=== PATIENT | female | born 1955 | race Caucasian/White ===

== ENCOUNTER 2019-01-07 16:53 | Inpatient (IN) ==
[2019-01-07] MEDS ORDERED: Acetaminophen 325 MG Tablet PO ONE (17:58)
[2019-01-07] MEDS ORDERED: Azithromycin Inj 500 MG in Sodium Chlor 0.9% Inj 250 ML IV.SIG ONE (17:58)
[2019-01-07] MEDS ORDERED: MethylPREDNISolone Sod Succinate Inj 125 MG/2 ML Vial IV.PUSH ONE (17:59)
--- NOTE | 2019-01-07 18:07 | ED ---
HPI General Chief complaint: Respiratory Symptoms Stated complaint: Pneumonia Symptoms Time Seen by Provider: 01/07/19 17:52 Source: patient Mode of arrival: ambulatory Limitations: no limitations History of Present Illness HPI narrative: 63-year-old female with history of COPD, not on home oxygen, hypertension, from [place], has been down here since October 2018, has no local primary care physicians, was diagnosed with bronchial pneumonia at an urgent care clinic on 01/01/19 and was prescribed Levaquin, prednisone, and Tessalon Perles, here because the patient's symptoms have not improved and appear to be worsening. The patient has a cough productive of greenish sputum. She denies hemoptysis. She is dyspneic at rest, worse with exertion and laying flat. Patient states she feels like she is drowning. She denies history of CHF or cardiac disease. She does continue to smoke cigarettes, however has had very few cigarettes in the last couple of weeks because she has been feeling ill. Levaquin and prednisone prescriptions were finished 2 days ago. She is having diffuse chest tightness which is constant and moderate. No history of DVT or PE. She has had subjective fevers and chills stating that she felt extremely hot yesterday evening. Related Data Home Medications Medication Instructions Recorded Confirmed losartan 100 mg PO DAILY 01/07/19 01/07/19 Allergies Allergy/AdvReac Type Severity Reaction Status Date / Time aspirin Allergy Bleeding Verified 01/07/19 17:08 Review of Systems ROS: all other systems reviewed are negative PMFSH Medical History Medical History Broken jaw (Acute) COPD (chronic obstructive pulmonary disease) (Acute) FH: cholecystectomy (Acute) H/O: hysterectomy (Acute) Hypertension (Acute) Uterine cancer (Acute) Surgical History Surgical History H/O foot surgery (Acute) History of facial surgery (Acute) Social History Social History Substance History: No History of Abuse Second Hand Smoke Exposure: Yes Smoking Status: Current every day smoker Tobacco Type: Cigarettes How Often Do You Have a Drink Containing Alcohol: Never Recent Travel in [facility] within the Last 8 Weeks: No Recent Out of Country Travel within the Last 8 Weeks: No Immunization History Tetanus Immunization: <5 Years Exam Narrative Exam Narrative: GENERAL: Well-developed, well-nourished, appears ill, intermittent deep sounding cough, speaking full sentences SKIN: Focused skin assessment warm/dry. No rash. HEAD: Atraumatic. Normocephalic. EYES: Pupils equal and round. No scleral icterus. No injection or drainage. ENT: Mucous membranes pink and dry. NECK: Trachea midline. No JVD. CARDIOVASCULAR: Tachycardic, rate 100, regular. RESPIRATORY: No accessory muscle use. Coarse breath sounds bilaterally with slight inspiratory and expiratory wheezes bilaterally. Intermittent deep sounding cough. Breath sounds equal bilaterally. GASTROINTESTINAL: Abdomen soft, non-tender, nondistended. MUSCULOSKELETAL: No obvious deformities. No clubbing. No cyanosis. No edema. NEUROLOGICAL: Awake and alert. No obvious cranial nerve deficits. Motor grossly within normal limits. Normal speech. PSYCHIATRIC: Appropriate mood and affect; insight and judgment normal. Course Initial Documented Vital Signs Temperature 98.2 F 01/07/19 17:00 Pulse Rate 95 H 01/07/19 17:00 Respiratory Rate 17 01/07/19 17:00 Blood Pressure 159/79 H 01/07/19 17:00 Pulse Oximetry 96 01/07/19 17:00 Last Documented Vital Signs Temperature 98.2 F 01/07/19 17:00 Pulse Rate 95 H 01/07/19 18:21 Respiratory Rate 15 01/07/19 18:21 Blood Pressure 159/79 H 01/07/19 17:00 Pulse Oximetry 96 01/07/19 17:00 Medical Decision Making MDM Narrative Medical decision making narrative: The patient was initially evaluated in triage by me as part of the RMA process. Initial labs and imaging studies were ordered by me, and the patient will be brought back to a treatment room where the results will be followed up by the PA. Patient was evaluated/reassessed by myself via the RMA process Patient received 3 DuoNeb treatments along with Solu-Medrol IV dose Reevaluation patient is still wheezing throughout all sections of the lung. Mostly expiratory wheezes Lab work is unremarkable. Lactic is negative Chest x-ray does not show a pneumonia Patient will receive another dose of albuterol nebulizer treatment Patient will be admitted for COPD exacerbation/bronchitis Medical Screen Exam Complete: Yes Emergency Medical Condition: Yes Differential Diagnosis Differential Diagnosis: Sepsis, pneumonia, bronchitis, failed outpatient treatment, pulmonary edema, PE, pleural effusion, COPD exacerbation Lab Data Result diagrams: 01/07/19 18:10 01/07/19 18:10 Lab Results 02/23/19 02/23/19 02/23/19 Range/Units 18:10 18:10 18:10 WBC 10.8 (4.0-11.0) th/mm3 RBC 5.11 (4.00-5.30) mil/mm3 Hgb 15.2 (11.6-15.3) gm/dL Hct 44.7 (35.0-46.0) % MCV 87.5 (80.0-100.0) fL MCH 29.8 (27.0-34.0) pg MCHC 34.1 (32.0-36.0) % RDW 14.2 (11.6-17.2) % Plt Count 337 (150-450) th/mm3 MPV 7.6 (7.0-11.0) fL Neut % (Auto) 65.7 (16.0-70.0) % Lymph % (Auto) 25.6 (9.0-44.0) % [place] % (Auto) 7.7 (0.0-8.0) % Eos % (Auto) 0.3 (0.0-4.0) % Baso % (Auto) 0.7 (0.0-2.0) % Neut # (Auto) 7.1 (1.8-7.7) th/mm3 Lymph # (Auto) 2.8 (1.0-4.8) th/mm3 [place] # (Auto) 0.8 (0.0-0.9) th/mm3 Eos # (Auto) 0.0 (0.0-0.4) th/mm3 Baso # (Auto) 0.1 (0.0-0.2) th/mm3 WBC Differential . Differential Comment Auto diff final PT 9.8 (9.8-11.6) sec INR 1.0 Ratio Sodium 140 (136-145) meq/L Potassium 4.2 (3.5-5.1) meq/L Chloride 107 (98-107) meq/L Carbon Dioxide 24.7 (21.0-32.0) meq/L Anion Gap 8 (5-15) meq/L BUN 22 H (7-18) mg/dL Creatinine 0.81 (0.50-1.00) mg/dL Estimated GFR 72 L (>89) mL/min Random Glucose 101 (74-106) mg/dL Lactic Acid (0.4-2.0) mmol/L Calcium 8.8 (8.5-10.1) mg/dL Magnesium 2.2 (1.5-2.5) mg/dL Total Bilirubin 0.7 (0.2-1.0) mg/dL AST 17 (15-37) U/L ALT 23 (10-53) U/L Alkaline Phosphatase 97 (45-117) U/L Total Creatine Kinase 54 (26-192) U/L Troponin I Less than 0.02 L (0.02-0.05) ng/mL B-Natriuretic Peptide (0-100) pg/mL Total Protein 7.3 (6.4-8.2) g/dL Albumin 3.6 (3.4-5.0) g/dL 01/07/19 01/07/19 Range/Units 18:10 18:10 WBC (4.0-11.0) th/mm3 RBC (4.00-5.30) mil/mm3 Hgb (11.6-15.3) gm/dL Hct (35.0-46.0) % MCV (80.0-100.0) fL MCH (27.0-34.0) pg MCHC (32.0-36.0) % RDW (11.6-17.2) % Plt Count (150-450) th/mm3 MPV (7.0-11.0) fL Neut % (Auto) (16.0-70.0) % Lymph % (Auto) (9.0-44.0) % [place] % (Auto) (0.0-8.0) % Eos % (Auto) (0.0-4.0) % Baso % (Auto) (0.0-2.0) % Neut # (Auto) (1.8-7.7) th/mm3 Lymph # (Auto) (1.0-4.8) th/mm3 [place] # (Auto) (0.0-0.9) th/mm3 Eos # (Auto) (0.0-0.4) th/mm3 Baso # (Auto) (0.0-0.2) th/mm3 WBC Differential Differential Comment PT (9.8-11.6) sec INR Ratio Sodium (136-145) meq/L Potassium (3.5-5.1) meq/L Chloride (98-107) meq/L Carbon Dioxide (21.0-32.0) meq/L Anion Gap (5-15) meq/L BUN (7-18) mg/dL Creatinine (0.50-1.00) mg/dL Estimated GFR (>89) mL/min Random Glucose (74-106) mg/dL Lactic Acid 1.0 (0.4-2.0) mmol/L Calcium (8.5-10.1) mg/dL Magnesium (1.5-2.5) mg/dL Total Bilirubin (0.2-1.0) mg/dL AST (15-37) U/L ALT (10-53) U/L Alkaline Phosphatase (45-117) U/L Total Creatine Kinase (26-192) U/L Troponin I (0.02-0.05) ng/mL B-Natriuretic Peptide 21 (0-100) pg/mL Total Protein (6.4-8.2) g/dL Albumin (3.4-5.0) g/dL Imaging Data Radiologist's impression: Chest X-Ray 01/07/19 17:58 CONCLUSION: The lungs are clear. ECG Data Attestation: I personally reviewed and interpreted this ECG as follows: (Sinus tachycardia, rate 103, normal axis, normal intervals, nonspecific T wave abnormality, no acute ischemic abnormality.) Discharge Plan Discharge Disposition Patient Disposition: ED Admit(ED Internal Use Only) Discharge Condition Condition: Stable Discharge Details Diagnosis: Bronchitis, COPD with acute exacerbation Physicians Team ED Provider: Bajlit Purdy ED Midlevel Provider: Dayanna Rivas Primary Care Provider: Primary Care Leydi Pantoja Rxs /Orders / Referrals /Forms Prescriptions: No Action losartan 100 mg Tablet 100 mg PO DAILY RF: 0 Discharge Interventions Interventions: Vital Signs Last Done: 01/07/19 17:07 Status ED Status: With Doctor
[2019-01-07 18:27] LABS: Baso # (Auto) 0.1 th/mm3 (0.0-0.2); Baso % (Auto) 0.7 % (0.0-2.0); Eos % (Auto) 0.3 % (0.0-4.0); Hematocrit 44.7 % (35.0-46.0); Hemoglobin 15.2 gm/dL (11.6-15.3); Lymph # (Auto) 2.8 th/mm3 (1.0-4.8); Lymph % (Auto) 25.6 % (9.0-44.0); Mean Corpuscular HGB Conc 34.1 % (32.0-36.0); Mean Corpuscular Hemoglobin 29.8 pg (27.0-34.0); Mean Corpuscular Volume 87.5 fL (80.0-100.0); Mean Platelet Volume 7.6 fL (7.0-11.0); Mono # (Auto) 0.8 th/mm3 (0.0-0.9); Mono % (Auto) 7.7 % (0.0-8.0); Neut # (Auto) 7.1 th/mm3 (1.8-7.7); Neut % (Auto) 65.7 % (16.0-70.0); Platelet Count 337 th/mm3 (150-450); Red Blood Count 5.11 mil/mm3 (4.00-5.30); Red Cell Distribution Width 14.2 % (11.6-17.2); White Blood Count 10.8 th/mm3 (4.0-11.0)
[2019-01-07 18:34] LABS: Prothrombin Time 9.8 sec (9.8-11.6)
[2019-01-07 18:59] LABS: Alanine Aminotransferase 23 U/L (10-53)
[2019-01-07 19:17] LABS: Albumin 3.6 g/dL (3.4-5.0); Alkaline Phosphatase 97 U/L (45-117); Anion Gap 8 meq/L (5-15); Aspartate Aminotransferase 17 U/L (15-37); Blood Urea Nitrogen 22 mg/dL (7-18); Calcium 8.8 mg/dL (8.5-10.1); Carbon Dioxide 24.7 meq/L (21.0-32.0); Chloride 107 meq/L (98-107); Glomerular Filtration Rate 72 mL/min (>89); Glucose,Random 101 mg/dL (74-106); Magnesium 2.2 mg/dL (1.5-2.5); Potassium 4.2 meq/L (3.5-5.1); Sodium 140 meq/L (136-145); Total Protein 7.3 g/dL (6.4-8.2)
[2019-01-07 19:19] LABS: Creatine Kinase 54 U/L (26-192)
--- NOTE | 2019-01-07 19:20 | XR ---
EXAM DATE: 01/07/2019 6:53 PM EST AGE/SEX: 63 years / Female INDICATIONS: Cough and cold symptoms for 10 days. CLINICAL DATA: This is the patient's initial encounter. Patient reports that signs and symptoms have been present for 1 week and indicates a pain score of 0/10. MEDICAL/SURGICAL HISTORY: Hypertension. None. COMPARISON: No prior exams available for comparison. FINDINGS: A single AP view of the chest demonstrates the lungs to be symmetrically aerated without evidence of mass, infiltrate or effusion. The cardiomediastinal contours are unremarkable. Osseous structures a re intact. CONCLUSION: The lungs are clear. Electronically signed by: Roe Youngblood MD Board Certified Radiologist 01/07/2019 7:18 PM EST
--- NOTE | 2019-01-07 19:52 | P.HPFP ---
History of Present Illness Primary Care Physician: No Primary Care Physician History of Present Illness: 63-year-old female with a history of COPD and hypertension presents to the ED for shortness of breath. Patient states that she is visiting here for [place] during the winter months. No primary care physician here. States that about a week ago patient, she started having congestion and productive coughing of green phelgm. States that she went to urgent care on the 01/01 and was prescribed Levaquin, prednisone, tessalon pearls, and albuterol inhaler as needed. States that she finished her total course of antibiotics and has only mildly improved. Reports that she called the urgent care doctor to request more antibiotics, but he told her that she needs to be seen or go to the ED. Reports that she has progressively gotten worse with congestion and headache. Still coughing up green mucus and reports that her head and chest feels full. Patient states that she is nauseated, but no episodes of vomiting. Also endorses subjective fevers. Complains of right ear pain. Denies diarrhea, abdominal pain, and sick contacts. Denies being hospitalized within the past 3 months. Denies ever being hospitalized for COPD exacerbations. States that she has been hospitalized within the past year for bronchopneumonia in [place]. She did not receive a flu shot this year. She is a current smoker and has decreased smoking to 6 cigarettes a week. - Diagnosis (1) Hypertension (2) COPD with acute exacerbation Review of Systems All other systems reviewed negative except as stated in HPI PMFSH - History History Provided By: Patient - Medical History Medical History: Medical History (Last Updated 01/07/19 @ 17:08 by Isaura Marsh) Broken jaw COPD (chronic obstructive pulmonary disease) FH: cholecystectomy H/O: hysterectomy Hypertension Uterine cancer - Surgical History Surgical History: Surgical History (Last Updated 01/07/19 @ 17:08 by Isaura Marsh) H/O foot surgery History of facial surgery - Social History I have reviewed the patient's Social History: Yes - Tobacco History Second Hand Smoke Exposure: Yes Tobacco Use In Past 30 Days: Yes Smoking Status: Current every day smoker Tobacco Type: Cigarettes - Alcohol History How Often Do You Have a Drink Containing Alcohol: Never - Substance Use History Substance History: No History of Abuse - Travel History Recent Travel in the [facility] Within the Last 8 Weeks: No Recent Travel Out of the Country Within the Last 8 Weeks: No - Immunization History Tetanus Immunization: <5 Years Medications and Allergies Allergies Allergy/AdvReac Type Severity Reaction Status Date / Time aspirin Allergy Bleeding Verified 01/07/19 17:08 Home Medications Medication Instructions Recorded Confirmed Type losartan 100 mg PO DAILY 01/07/19 01/07/19 History Exam Vital signs: Vital Signs 01/07/19 17:00 01/07/19 17:07 01/07/19 18:21 Temperature 98.2 F Pulse Rate 95 H 95 H Respiratory Rate 17 24 15 Blood Pressure 159/79 H Pulse Oximetry 96 Intake & Output 01/07/19 01/07/19 01/08/19 06:59 18:59 06:59 Intake Total 100 / 100 Balance 100 / 100 Weight 68.039 kg Intake: IV 100 / 100 Rocephin Inj 1,000 MG In NS Inj 100 / 100 100 ML @ 200 mls/hr IV.SIG ONCE ONE Rx#:[id number] - Constitutional no acute distress - Routine HEENT Exam ENT: Present: mucous membranes moist, nares patent. Absent: sinus tenderness Comments: Right outer ear erythematous, right tympanic membrane clear bilaterally, left tympanic membranes clear bilaterally - Routine Neck Exam Present: supple, full ROM. Absent: JVD - Routine Respiratory Exam Comments: Moderate wheezes throughout all lung [place] - Routine Cardiovascular Exam Present: RRR, S1, S2. Absent: murmur, gallop, rubs - Routine Abdominal Exam Present: soft, normoactive bowel sounds. Absent: tenderness, distended, rebound , guarding - Routine Extremities Exam Absent: cyanosis, clubbing, edema - Routine Neurological Exam Present: alert, oriented X3 Results - Labs Result diagrams: 01/07/19 18:10 01/07/19 18:10 Abnormal lab results 01/07/19 Range/Units 18:10 BUN 22 H (7-18) mg/dL Estimated GFR 72 L (>89) mL/min Troponin I Less than 0.02 L (0.02-0.05) ng/mL Short CBC 01/07/19 Range/Units 18:10 WBC 10.8 (4.0-11.0) th/mm3 Hgb 15.2 (11.6-15.3) gm/dL Hct 44.7 (35.0-46.0) % Plt Count 337 (150-450) th/mm3 BMP 01/07/19 18:10 Sodium 140 Potassium 4.2 Chloride 107 Carbon Dioxide 24.7 BUN 22 H Creatinine 0.81 Calcium 8.8 Cardiac Enzymes 01/07/19 Range/Units 18:10 Total Creatine Kinase 54 (26-192) U/L Troponin I Less than 0.02 L (0.02-0.05) ng/mL Liver Function 01/07/19 Range/Units 18:10 Total Bilirubin 0.7 (0.2-1.0) mg/dL AST 17 (15-37) U/L ALT 23 (10-53) U/L Alkaline Phosphatase 97 (45-117) U/L Albumin 3.6 (3.4-5.0) g/dL - Imaging Impressions Chest X-Ray 01/07/19 17:58 CONCLUSION: The lungs are clear. Caprini VTE Risk Assessment Caprini VTE Risk Assessment: Moderate/High Risk (score >= 2) Caprini Risk Assessment Model: Point Value = 1 Point Value = 2 Point Value = 3 Point Value = 5 Age 41-60 Minor surgery BMI > 25 kg/m2 Swollen legs Varicose veins or History of unexplained or recurrent spontaneous Oral contraceptives or hormone replacement Sepsis (< 1 month) Serious lung disease, including pneumonia (< 1 month) Abnormal pulmonary function Acute myocardial infarction Congestive heart failure (< 1 month) History of inflammatory bowel disease Medical patient at bed rest Age 61-74 Arthroscopic surgery Major open surgery (> 45 min) Laparoscopic surgery (> 45 min) Malignancy Confined to bed (> 72 hours) Immobilizing plaster cast Central venous access Age >= 75 History of VTE Family history of VTE Factor V Leiden Prothrombin [id number] Lupus anticoagulant Anticardiolipin antibodies Elevated serum homocysteine Heparin-induced thrombocytopenia Other congenital or acquired thrombophilia Stroke (< 1 month) Elective arthroplasty Hip, pelvis, or leg fracture Acute spinal cord injury (< 1 month) Prophylaxis Regimen: Total Risk Factor Score Risk Level Prophylaxis Regimen 0-1 Low Early ambulation 2 Moderate Order ONE of the following: *Sequential Compression Device (SCD) *Heparin 5000 units SQ BID 3-4 Higher Order ONE of the following medications: *Heparin 5000 units SQ TID *Enoxaparin/Lovenox 40 mg SQ daily (WT < 150 kg, CrCl > 30 mL/min) *Enoxaparin/Lovenox 30 mg SQ daily (WT < 150 kg, CrCl > 10-29 mL/min) *Enoxaparin/Lovenox 30 mg SQ BID (WT < 150 kg, CrCl > 30 mL/min) AND/OR *Sequential Compression Device (SCD) 5 or more Highest Order ONE of the following medications: *Heparin 5000 units SQ TID (Preferred with Epidurals) *Enoxaparin/Lovenox 40 mg SQ daily (WT < 150 kg, CrCl > 30 mL/min) *Enoxaparin/Lovenox 30 mg SQ daily (WT < 150 kg, CrCl > 10-29 mL/min) *Enoxaparin/Lovenox 30 mg SQ BID (WT < 150 kg, CrCl > 30 mL/min) AND *Sequential Compression Device (SCD) Assessment and Plan - Assessment (1) Hypertension Code(s): I10 - Essential (primary) hypertension Status: Acute (2) COPD with acute exacerbation Code(s): J44.1 - Chronic obstructive pulmonary disease with (acute) exacerbation Status: Acute - Assessment and Plan 63-year-old female with COPD and hypertension presents the ED with shortness of breath, admitted for COPD exacerbation with failed outpatient therapy with Levaquin. COPD exacerbation -O2 sat 96% on room air -No leukocytosis on CBC -Influenza negative, Legionella and pneumococcal pending -Chest x-ray negative -Sputum culture ordered -S/p 3 treatments of DuoNebs, 125 mg of IV Solu-Medrol, 1 dose of Rocephin and azithromycin -Patient failed outpatient therapy with Levaquin. Will start patient on Zosyn 4.5 gm IV q6h (01/07-) -Solu-Medrol 60 mg IV every 6 hours -Duo nebs and albuterol -Oxygen as needed to keep sats above 92% -Consult to COPD educator Hypertension -continue home losartan GI ppx: protonix DVT prophylaxis: SCDs
[2019-01-07 21:31] LABS: ABG Base Excess -2.1 mmol/L (-2-2); ABG PCO2 28 mmHg (38-42); ABG PO2 70 mmHg (61-120)
[2019-01-07] MEDS: Acetaminophen 325 MG Tablet PO PRN (21:41)
--- NOTE | 2019-01-07 21:48 | ECG ---
Date Performed: 01/07/2019 Time Performed: 18:08:00 PTAGE: 63 years EKG: SINUS TACHYCARDIA NONSPECIFIC T-WAVE ABNORMALITY ABNORMAL RHYTHM ECG NO PREVIOUS TRACING DOCTOR: Simon Stout Interpretating Date/Time 01/07/2019 21:46:33
[2019-01-08] MEDS: MethylPREDNISolone Sod Succinate Inj 125 MG/2 ML Vial IV.PUSH SCH ×4 (00:22→18:08)
[2019-01-08] MEDS: Ciprofloxacin 0.3% Opth Drops 2.5 ML Bottle RIGHT EAR SCH ×3 (00:22→21:19)
[2019-01-08] MEDS: Piperacil/Tazo 4.5 GM Premix 4.5 GM/100 ML BAG IV.SIG SCH ×5 (00:22→21:19)
[2019-01-08] MEDS: Acetaminophen 325 MG Tablet PO PRN (04:49)
[2019-01-08 08:48] LABS: Baso % (Auto) 0.3 % (0.0-2.0); Hematocrit 40.4 % (35.0-46.0); Hemoglobin 13.7 gm/dL (11.6-15.3); Lymph # (Auto) 0.7 th/mm3 (1.0-4.8); Lymph % (Auto) 5.5 % (9.0-44.0); Mean Corpuscular Hemoglobin 30.3 pg (27.0-34.0); Mean Platelet Volume 7.7 fL (7.0-11.0); Mono # (Auto) 0.2 th/mm3 (0.0-0.9); Mono % (Auto) 2.1 % (0.0-8.0); Neut % (Auto) 92.1 % (16.0-70.0); Platelet Count 280 th/mm3 (150-450); Red Blood Count 4.54 mil/mm3 (4.00-5.30); Red Cell Distribution Width 13.9 % (11.6-17.2)
[2019-01-08] MEDS ORDERED: Azithromycin 250 MG Tablet PO SCH (09:00)
[2019-01-08 09:15] LABS: Calcium 8.6 mg/dL (8.5-10.1); Carbon Dioxide 20.3 meq/L (21.0-32.0)
[2019-01-08 09:16] LABS: Potassium 4.5 meq/L (3.5-5.1)
--- NOTE | 2019-01-08 09:18 | P.HPFP ---
History of Present Illness Primary Care Physician: No Primary Care Physician History of Present Illness: Ms Stevens is a 63-year-old female with a history of COPD and hypertension who presented to the ED for shortness of breath. Patient states that she is visiting here for [place] during the winter months. No primary care physician here. States that about a week ago she started having congestion and productive coughing of green phlegm. States that she went to urgent care on the 01/01 and was prescribed Levaquin, prednisone, tessalon pearls, and albuterol inhaler as needed. States that she finished her total course of antibiotics and has only mildly improved. Reports that she called the urgent care doctor to request more antibiotics, but he told her that she needs to be seen or go to the ED. Reports that she has progressively gotten worse with congestion and headache. Still coughing up green mucus and reports that her head and chest feels full. Patient states that she is nauseated, but no episodes of vomiting. Also endorses subjective fevers. Complains of right ear pain. Denies diarrhea, abdominal pain, and sick contacts. Denies being hospitalized within the past 3 months. Denies ever being hospitalized for COPD exacerbations. States that she has been hospitalized within the past year for bronchopneumonia in [place]. She did not receive a flu shot this year. She is a current smoker and has decreased smoking to 6 cigarettes a week. - Diagnosis (1) Hypertension (2) COPD with acute exacerbation Review of Systems Constitutional: Reports fatigue, Reports headache(s), Reports malaise, Denies anorexia Eyes: Denies double vision Ears, Nose, Mouth, and Throat: Denies abnormal hearing, Denies change in voice, Denies nasal obstruction Cardiovascular: Reports shortness of breath, Denies chest pain Respiratory: Reports change in phlegm color, Reports chest congestion, Reports cough, Reports excessive phlegm production, Reports shortness of breath, Reports wheezing, Denies coughing up blood Gastrointestinal: Denies abdominal pain Musculoskeletal: Denies abnormal walking Neurologic: Denies abnormal hearing, Denies abnormal speech, Denies frequent falls Psychiatric: Denies abnormal sleep pattern PMFSH - History History Provided By: Patient - Medical History Medical History: Medical History (Last Updated 01/07/19 @ 17:08 by Isaura Marsh) Broken jaw COPD (chronic obstructive pulmonary disease) FH: cholecystectomy H/O: hysterectomy Hypertension Uterine cancer - Surgical History Surgical History: Surgical History (Last Updated 01/07/19 @ 17:08 by Isaura Marsh) H/O foot surgery History of facial surgery - Social History I have reviewed the patient's Social History: Yes - Tobacco History Second Hand Smoke Exposure: Yes Tobacco Use In Past 30 Days: Yes Smoking Status: Current every day smoker Tobacco Type: Cigarettes - Alcohol History How Often Do You Have a Drink Containing Alcohol: 2 to 4 times a month - Substance Use History Substance History: No History of Abuse - Travel History Recent Travel in the [place] Within the Last 8 Weeks: No Recent Travel Out of the Country Within the Last 8 Weeks: No - Immunization History Tetanus Immunization: <5 Years Medications and Allergies Active Medications: Active Medications Acetaminophen (Tylenol) 650 mg PO Q4H PRN PRN Reason: Temp > 100.4 Last Admin: 01/08/19 04:49 Dose: 650 mg Albuterol (Albuterol Neb (Prn)) 2.5 mg NEB Q2HR NEB PRN PRN Reason: SHORTNESS OF BREATH Albuterol (Duoneb Neb (Brandy)) 1 ampul NEB Q4HR NEB [facility] Last Admin: 01/08/19 07:45 Dose: 1 ampul Ciprofloxacin HCl (Ciloxan 0.3% Opth Drops) 3 drop RIGHT EAR BID [facility] Last Admin: 01/08/19 00:22 Dose: 3 drop Piperacillin/Tazobactam/Dextrose (Zosyn 4.5 Gm Premix) 4.5 gm in 100 mls @ 200 mls/hr IV.SIG Q6H [facility] Last Infusion: 01/08/19 06:25 Dose: Infused Losartan Potassium (Cozaar) 100 mg PO DAILY [facility] Last Admin: 01/07/19 21:41 Dose: 100 mg Methylprednisolone Sodium Succinate (Solumedrol Inj) 60 mg IV.PUSH Q6HR [facility] Last Admin: 01/08/19 06:25 Dose: 60 mg Ondansetron HCl (Zofran Inj) 4 mg IV.PUSH Q6H PRN PRN Reason: NAUSEA OR VOMITING Pantoprazole Sodium (Protonix) 40 mg PO DAILY [facility] Last Admin: 01/07/19 21:41 Dose: 40 mg Sodium Chloride (Ns Flush) 2 ml IV.FLUSH BID [facility] Last Admin: 01/07/19 21:42 Dose: 2 ml Sodium Chloride (Ns Flush) 2 ml IV.FLUSH PRN PRN PRN Reason: FLUSH AFTER USING IV ACCESS Zolpidem Tartrate (Ambien) 10 mg PO HS PRN PRN Reason: insomnia Last Admin: 01/07/19 21:41 Dose: 10 mg Allergies Allergy/AdvReac Type Severity Reaction Status Date / Time aspirin Allergy Bleeding Verified 01/07/19 17:08 Home Medications Medication Instructions Recorded Confirmed Type losartan 100 mg PO DAILY 01/07/19 01/07/19 History Exam Vital signs: Vital Signs 01/07/19 17:00 01/07/19 17:07 01/07/19 18:21 Temperature 98.2 F Pulse Rate 95 H 95 H Respiratory Rate 17 24 15 Blood Pressure 159/79 H Pulse Oximetry 96 01/07/19 21:38 01/07/19 21:44 01/07/19 23:31 Temperature 97.7 F Pulse Rate 90 83 88 Respiratory Rate 19 20 16 Blood Pressure 124/71 Pulse Oximetry 95 95 01/08/19 00:00 01/08/19 03:39 01/08/19 03:45 Temperature 97.4 F L 98 F Pulse Rate 93 H 94 H 86 Respiratory Rate 25 H 16 16 Blood Pressure 111/63 114/57 L Pulse Oximetry 94 L 91 L 01/08/19 07:07 01/08/19 07:46 Temperature 97.6 F Pulse Rate 88 80 Respiratory Rate 18 20 Blood Pressure 121/72 Pulse Oximetry 95 Intake & Output 01/07/19 01/08/19 01/08/19 18:59 06:59 18:59 Intake Total 910 / 910 Balance 910 / 910 Weight 68.039 kg 68.04 kg Intake: IV 550 / 550 Azithromycin Inj 500 MG In NS 250 / 250 Inj 250 ML @ 250 mls/hr IV.SIG ONCE ONE Rx#:[id number] Zosyn 4.5 GM Premix 4.5 gm In 200 / 200 100 ml @ 200 mls/hr IV.SIG Q6H [facility] Rx#:[id number] Rocephin Inj 1,000 MG In NS Inj 100 / 100 100 ML @ 200 mls/hr IV.SIG ONCE ONE Rx#:[id number] Oral 360 / 360 Other: # Voids 1 Weight On Admission 68.039 kg - Constitutional mild distress, thin, cooperative - Routine HEENT Exam Head: Present: normocephalic, atraumatic Eye: Present: EOMI, PERRL ENT: Present: oropharynx clear, external ear normal - Routine Neck Exam Present: supple, full ROM - Routine Chest/Breast/Axilla Exam Chest wall: Absent: tenderness - Routine Respiratory Exam Present: prolonged expiratory phase, wheezes. Absent: accessory muscle use, patient mechanically ventilated, respiratory distress, distant breath sounds - Routine Cardiovascular Exam Present: RRR. Absent: murmur, gallop, rubs - Routine Abdominal Exam Present: soft. Absent: tenderness, distended, rebound - Routine Extremities Exam Present: full ROM. Absent: cyanosis, clubbing, edema - Routine Skin Exam Present: intact, dry. Absent: cracked - Routine Neurological Exam Present: alert, oriented X3 Results - Labs Result diagrams: 01/08/19 07:56 01/08/19 07:56 Abnormal lab results 01/07/19 01/07/19 01/08/19 Range/Units 18:10 21:19 07:56 WBC 12.0 H (4.0-11.0) th/mm3 Neut % (Auto) 92.1 H (16.0-70.0) % Lymph % (Auto) 5.5 L (9.0-44.0) % Neut # (Auto) 11.0 H (1.8-7.7) th/mm3 Lymph # (Auto) 0.7 L (1.0-4.8) th/mm3 ABG pH 7.48 H (7.380-7.420) ABG pCO2 28 L (38-42) mmHg ABG HCO3 21 L (22-26) mmol/L ABG Base Excess -2.1 L (-2-2) mmol/L Carbon Dioxide (21.0-32.0) meq/L BUN 22 H (7-18) mg/dL Estimated GFR 72 L (>89) mL/min Random Glucose (74-106) mg/dL Troponin I Less than 0.02 L (0.02-0.05) ng/mL 01/08/19 Range/Units 07:56 WBC (4.0-11.0) th/mm3 Neut % (Auto) (16.0-70.0) % Lymph % (Auto) (9.0-44.0) % Neut # (Auto) (1.8-7.7) th/mm3 Lymph # (Auto) (1.0-4.8) th/mm3 ABG pH (7.380-7.420) ABG pCO2 (38-42) mmHg ABG HCO3 (22-26) mmol/L ABG Base Excess (-2-2) mmol/L Carbon Dioxide 20.3 L (21.0-32.0) meq/L BUN (7-18) mg/dL Estimated GFR 74 L (>89) mL/min Random Glucose 148 H (74-106) mg/dL Troponin I (0.02-0.05) ng/mL Short CBC 01/07/19 01/08/19 Range/Units 18:10 07:56 WBC 10.8 12.0 H (4.0-11.0) th/mm3 Hgb 15.2 13.7 (11.6-15.3) gm/dL Hct 44.7 40.4 (35.0-46.0) % Plt Count 337 280 (150-450) th/mm3 BMP 01/07/19 01/08/19 18:10 07:56 Sodium 140 139 Potassium 4.2 4.5 Chloride 107 107 Carbon Dioxide 24.7 20.3 L BUN 22 H 17 Creatinine 0.81 0.79 Calcium 8.8 8.6 Cardiac Enzymes 01/07/19 Range/Units 18:10 Total Creatine Kinase 54 (26-192) U/L Troponin I Less than 0.02 L (0.02-0.05) ng/mL Liver Function 01/07/19 Range/Units 18:10 Total Bilirubin 0.7 (0.2-1.0) mg/dL AST 17 (15-37) U/L ALT 23 (10-53) U/L Alkaline Phosphatase 97 (45-117) U/L Albumin 3.6 (3.4-5.0) g/dL - Imaging Impressions Chest X-Ray 01/07/19 17:58 CONCLUSION: The lungs are clear. Caprini VTE Risk Assessment Caprini VTE Risk Assessment: Moderate/High Risk (score >= 2) Caprini Risk Assessment Model: Point Value = 1 Point Value = 2 Point Value = 3 Point Value = 5 Age 41-60 Minor surgery BMI > 25 kg/m2 Swollen legs Varicose veins or History of unexplained or recurrent spontaneous Oral contraceptives or hormone replacement Sepsis (< 1 month) Serious lung disease, including pneumonia (< 1 month) Abnormal pulmonary function Acute myocardial infarction Congestive heart failure (< 1 month) History of inflammatory bowel disease Medical patient at bed rest Age 61-74 Arthroscopic surgery Major open surgery (> 45 min) Laparoscopic surgery (> 45 min) Malignancy Confined to bed (> 72 hours) Immobilizing plaster cast Central venous access Age >= 75 History of VTE Family history of VTE Factor V Leiden Prothrombin [id number] Lupus anticoagulant Anticardiolipin antibodies Elevated serum homocysteine Heparin-induced thrombocytopenia Other congenital or acquired thrombophilia Stroke (< 1 month) Elective arthroplasty Hip, pelvis, or leg fracture Acute spinal cord injury (< 1 month) Prophylaxis Regimen: Total Risk Factor Score Risk Level Prophylaxis Regimen 0-1 Low Early ambulation 2 Moderate Order ONE of the following: *Sequential Compression Device (SCD) *Heparin 5000 units SQ BID 3-4 Higher Order ONE of the following medications: *Heparin 5000 units SQ TID *Enoxaparin/Lovenox 40 mg SQ daily (WT < 150 kg, CrCl > 30 mL/min) *Enoxaparin/Lovenox 30 mg SQ daily (WT < 150 kg, CrCl > 10-29 mL/min) *Enoxaparin/Lovenox 30 mg SQ BID (WT < 150 kg, CrCl > 30 mL/min) AND/OR *Sequential Compression Device (SCD) 5 or more Highest Order ONE of the following medications: *Heparin 5000 units SQ TID (Preferred with Epidurals) *Enoxaparin/Lovenox 40 mg SQ daily (WT < 150 kg, CrCl > 30 mL/min) *Enoxaparin/Lovenox 30 mg SQ daily (WT < 150 kg, CrCl > 10-29 mL/min) *Enoxaparin/Lovenox 30 mg SQ BID (WT < 150 kg, CrCl > 30 mL/min) AND *Sequential Compression Device (SCD) Assessment and Plan - Assessment (1) Hypertension Code(s): I10 - Essential (primary) hypertension Status: Acute (2) COPD with acute exacerbation Code(s): J44.1 - Chronic obstructive pulmonary disease with (acute) exacerbation Status: Acute - Assessment and Plan 63-year-old female with COPD and hypertension presented to the ED with shortness of breath, admitted for COPD exacerbation with failed outpatient therapy with Levaquin. COPD exacerbation -O2 sat 96% on room air -No leukocytosis on CBC -Influenza negative, Legionella and pneumococcal pending -Chest x-ray negative -Sputum culture ordered -S/p 3 treatments of DuoNebs, 125 mg of IV Solu-Medrol, 1 dose of Rocephin and azithromycin -Patient failed outpatient therapy with Levaquin. Will start patient on Zosyn 4.5 gm IV q6h (01/07-) -Solu-Medrol 60 mg IV every 6 hours -Duo nebs and albuterol -Oxygen as needed to keep sats above 92% -Consult to COPD educator -Recommended quitting smoking. -She is wheezing throughout and may need another day though she does feel improved since she came to the hospital. Hypertension -continue home losartan GI ppx: protonix DVT prophylaxis: SCDs H&P: Quality - VTE Deep Vein Thrombosis/Pulmonary Embolism Present on Admission: No (1) Hypertension Qualifiers: Hypertension type: essential hypertension Qualified Code(s): I10 - Essential (primary) hypertension
[2019-01-08] MEDS: Ketorolac 10 MG Tablet PO PRN ×2 (12:13→21:20)
[2019-01-08] MEDS ORDERED: Butalbital/APAP/Caff 50/325/40 MG Tablet PO ONE (13:38)
[2019-01-08] MEDS ORDERED: Butalbital/APAP/Caff 50/325/40 MG Tablet PO PRN (17:09)
[2019-01-09] MEDS: MethylPREDNISolone Sod Succinate Inj 125 MG/2 ML Vial IV.PUSH SCH ×2 (00:38→05:42)
[2019-01-09] MEDS: Piperacil/Tazo 4.5 GM Premix 4.5 GM/100 ML BAG IV.SIG SCH ×4 (03:30→20:36)
[2019-01-09] MEDS: Ketorolac 10 MG Tablet PO PRN (05:42)
--- NOTE | 2019-01-09 08:08 | P.PNFP ---
Subjective Interval history: No acute events overnight. Patient complaining of JENNINGS this morning, states that Fiorcet provided relief, but not Toradol States that she would like to stay one more day Reports that she is breathing better, not requiring oxygen Tolerating diet well No other complaints Denies fevers, CP, SOB, N/V. <Fabio Magdalena Marino T - 01/09/19 08:08> Results - Labs Result diagrams: 01/10/19 07:29 01/10/19 07:29 <Gabby Mclaughlin - 01/12/19 09:12> Abnormal lab results 01/08/19 01/08/19 Range/Units 07:56 07:56 WBC 12.0 H (4.0-11.0) th/mm3 Neut % (Auto) 92.1 H (16.0-70.0) % Lymph % (Auto) 5.5 L (9.0-44.0) % Neut # (Auto) 11.0 H (1.8-7.7) th/mm3 Lymph # (Auto) 0.7 L (1.0-4.8) th/mm3 Carbon Dioxide 20.3 L (21.0-32.0) meq/L Estimated GFR 74 L (>89) mL/min Random Glucose 148 H (74-106) mg/dL Short CBC 01/08/19 Range/Units 07:56 WBC 12.0 H (4.0-11.0) th/mm3 Hgb 13.7 (11.6-15.3) gm/dL Hct 40.4 (35.0-46.0) % Plt Count 280 (150-450) th/mm3 [facility] 01/08/19 07:56 Sodium 139 Potassium 4.5 Chloride 107 Carbon Dioxide 20.3 L BUN 17 Creatinine 0.79 Calcium 8.6 <Fabio Magdaelna Marino T - 01/09/19 08:08> Physical Exam Vital signs: Vital Signs 01/11/19 11:36 01/11/19 11:40 Pulse Rate 81 84 Respiratory Rate 17 18 Blood Pressure 115/64 Pulse Oximetry 94 L Intake & Output 01/11/19 01/12/19 01/12/19 18:59 06:59 18:59 Other: Date of Last Bowel Movement 01/11/19 <Gabby Mclaughlin - 01/12/19 09:12> Vital Signs 01/08/19 12:01 01/08/19 12:22 01/08/19 14:28 Temperature 98.1 F Pulse Rate 84 80 Respiratory Rate 18 20 18 Blood Pressure 120/65 Pulse Oximetry 95 01/08/19 15:09 01/08/19 15:55 01/08/19 16:58 Temperature 97.8 F Pulse Rate 90 90 Respiratory Rate 20 18 20 Blood Pressure 126/68 Pulse Oximetry 95 01/08/19 19:55 01/08/19 20:00 01/08/19 23:23 Temperature 97.9 F 97.9 F Pulse Rate 86 84 86 Respiratory Rate 19 20 17 Blood Pressure 127/70 133/70 Pulse Oximetry 96 94 L 93 L 01/09/19 01:05 01/09/19 04:12 01/09/19 04:43 Temperature 98.3 F Pulse Rate 83 80 80 Respiratory Rate 18 17 22 Blood Pressure 107/55 L Pulse Oximetry 96 01/09/19 07:25 01/09/19 07:47 Temperature 98.6 F Pulse Rate 88 85 Respiratory Rate 18 14 Blood Pressure 135/89 Pulse Oximetry 96 95 Intake & Output 01/08/19 01/09/19 01/09/19 18:59 06:59 18:59 Intake Total 100 / 100 300 / 300 Balance 100 / 100 300 / 300 Intake: IV 100 / 100 300 / 300 Zosyn 4.5 GM Premix 4.5 gm In 100 / 100 300 / 300 100 ml @ 200 mls/hr IV.SIG Q6H [facility] Rx#:[id number] Other: # Voids 1 Date of Last Bowel Movement 01/07/19 <Magdalena Raman Horton 01/09/19 08:08> - Constitutional no acute distress, thin <Van Shilpa Marinon Horton 01/09/19 08:08> - Routine Respiratory Exam Present: wheezes <Van Ned,Magdalena Horton 01/09/19 08:08> Comments: wheezes throughout all lung [place], improved from prior <Van Shilpa Marinon Horton 01/09/19 08:08> - Routine Cardiovascular Exam Present: RRR, S1, S2. Absent: murmur, gallop, rubs <Van Shilpa Marinon Horton 08:08> - Routine Abdominal Exam Present: soft, normoactive bowel sounds. Absent: tenderness, distended, rebound , guarding <Magdalena Raman T - 01/09/19 08:08> - Routine Extremities Exam Absent: cyanosis, edema <Magdalena Raman T - 01/09/19 08:08> - Routine Neurological Exam Present: alert, oriented X3 <Magdalena Raman T - 01/09/19 08:08> Assessment and Plan - Assessment (1) Hypertension Code(s): I10 - Essential (primary) hypertension Status: Acute (2) COPD with acute exacerbation Code(s): J44.1 - Chronic obstructive pulmonary disease with (acute) exacerbation Status: Acute (3) Sinusitis Code(s): J32.9 - Chronic sinusitis, unspecified Status: Acute <Gabby Mclaughlin - 01/12/19 09:12> (1) Hypertension Code(s): I10 - Essential (primary) hypertension Status: Acute (2) COPD with acute exacerbation Code(s): J44.1 - Chronic obstructive pulmonary disease with (acute) exacerbation Status: Acute <Magdalena Raman - 01/09/19 09:44> - Assessment and Plan 63-year-old female with COPD and hypertension presented to the ED with shortness of breath, admitted for COPD exacerbation with failed outpatient therapy with Levaquin. COPD exacerbation -O2 sat 96% on room air -No leukocytosis on CBC -Influenza negative, Legionella and pneumococcal pending -Chest x-ray negative -Sputum culture ordered -Blood cultures NGTD -S/p 3 treatments of DuoNebs, 125 mg of IV Solu-Medrol, 1 dose of Rocephin and azithromycin -Patient failed outpatient therapy with Levaquin. -continue Zosyn 4.5 gm IV q6h (01/07-) -Discontinue Solu-Medrol 60 mg IV every 6 hours, start PO prednisone 50mg daily -Duo nebs and albuterol -Oxygen as needed to keep sats above 92% -Consult to COPD educator -Recommended quitting smoking. -patient would like to stay another day as she believes she doesn't feel well enough to be discharge Hypertension -continue home losartan Headache -most likely related to sinus pressure -Fiorcet PRN -Floanse and zyrtec started Otitis externa -Right ear -Cipro drops TID GI ppx: protonix DVT prophylaxis: SCDs Discharge planning: patient to follow up with [facility] <Magdalena Raman T - 01/09/19 09:48> - Attending Attestation The exam, history, and the medical decision-making described in the above note were completed with the assistance of the resident physician. I reviewed and agree with the findings presented. I attest that I had a [id number] encounter with the patient on the same day, and personally performed and documented my assessment and findings in the medical record. she reports prior headaches like this but not for many years. considering imaging <Gabby Mclaughlin M - 01/12/19 09:12> <Magdalena Raman T - Last Filed: 01/09/19 09:44> (1) Hypertension Qualifiers: Hypertension type: essential hypertension Qualified Code(s): I10 - Essential (primary) hypertension <Gabby Mclaughlin M - Last Filed: 01/12/19 09:12> (1) Hypertension Qualifiers: Hypertension type: essential hypertension Qualified Code(s): I10 - Essential (primary) hypertension <Fabio MarinoShilpajim Horton T - Last Filed: 01/09/19 09:44> (1) Hypertension Qualifiers: Hypertension type: essential hypertension Qualified Code(s): I10 - Essential (primary) hypertension <Gabby Mclaughlin M - Last Filed: 01/12/19 09:12> (1) Hypertension Qualifiers: Hypertension type: essential hypertension Qualified Code(s): I10 - Essential (primary) hypertension
[2019-01-09] MEDS: Senna/Docusate Sodium 8.6/50 MG Tablet PO SCH ×2 (08:52→20:36)
[2019-01-09] MEDS: Ciprofloxacin 0.3% Opth Drops 2.5 ML Bottle RIGHT EAR SCH ×2 (08:53→20:36)
[2019-01-09] MEDS ORDERED: Butalbital/APAP/Caff 50/325/40 MG Tablet PO PRN (09:00)
[2019-01-09] MEDS ORDERED: Butalbital/APAP/Caff 50/325/40 MG Tablet PO ONE ×2 (09:00→16:01)
[2019-01-09 13:07] LABS: Hematocrit 40.1 % (35.0-46.0); Hemoglobin 13.7 gm/dL (11.6-15.3); Lymph # (Auto) 0.6 th/mm3 (1.0-4.8); Lymph % (Auto) 3.1 % (9.0-44.0); Mean Corpuscular HGB Conc 34.1 % (32.0-36.0); Mean Corpuscular Hemoglobin 29.8 pg (27.0-34.0); Mean Corpuscular Volume 87.4 fL (80.0-100.0); Mean Platelet Volume 7.9 fL (7.0-11.0); Mono # (Auto) 0.2 th/mm3 (0.0-0.9); Mono % (Auto) 1.2 % (0.0-8.0); Neut # (Auto) 17.7 th/mm3 (1.8-7.7); Neut % (Auto) 95.7 % (16.0-70.0); Platelet Count 287 th/mm3 (150-450); Red Blood Count 4.58 mil/mm3 (4.00-5.30); Red Cell Distribution Width 14.3 % (11.6-17.2); White Blood Count 18.5 th/mm3 (4.0-11.0)
[2019-01-09 13:29] LABS: Calcium 8.8 mg/dL (8.5-10.1); Carbon Dioxide 22.5 meq/L (21.0-32.0); Potassium 4.1 meq/L (3.5-5.1)
[2019-01-09] MEDS: Butalbital/APAP/Caff 50/325/40 MG Tablet PO PRN (21:02)
[2019-01-10] MEDS: Piperacil/Tazo 4.5 GM Premix 4.5 GM/100 ML BAG IV.SIG SCH ×4 (03:47→20:32)
[2019-01-10] MEDS: Butalbital/APAP/Caff 50/325/40 MG Tablet PO PRN ×5 (03:48→22:15)
[2019-01-10 07:54] LABS: Hematocrit 39.8 % (35.0-46.0); Hemoglobin 13.3 gm/dL (11.6-15.3); Mean Corpuscular HGB Conc 33.5 % (32.0-36.0); Mean Corpuscular Hemoglobin 29.1 pg (27.0-34.0); Mean Corpuscular Volume 86.8 fL (80.0-100.0); Mean Platelet Volume 7.8 fL (7.0-11.0); Platelet Count 282 th/mm3 (150-450); Red Blood Count 4.59 mil/mm3 (4.00-5.30); Red Cell Distribution Width 14.4 % (11.6-17.2); White Blood Count 15.7 th/mm3 (4.0-11.0)
[2019-01-10] MEDS: Senna/Docusate Sodium 8.6/50 MG Tablet PO SCH ×2 (08:16→20:32)
[2019-01-10] MEDS: Ciprofloxacin 0.3% Opth Drops 2.5 ML Bottle RIGHT EAR SCH ×2 (08:16→20:31)
[2019-01-10] MEDS: CROMOLYN SODIUM EACH NARE SCH ×2 (08:16→12:24)
[2019-01-10 08:24] LABS: Calcium 8.5 mg/dL (8.5-10.1); Carbon Dioxide 25.5 meq/L (21.0-32.0); Potassium 4.2 meq/L (3.5-5.1)
--- NOTE | 2019-01-10 08:28 | P.PNFP ---
Subjective Interval history: No acute events overnight. Patient states that she still has a JENNINGS and does not feel like going home. Relieved with Fiorcet. Had trouble sleeping due to the JENNINGS Due to new onset JENNINGS, will order ESR and head CT w/ contrast States that her breathing is better, still wheezing. Has not required oxygen. Denies fevers, SOB, CP, and N/V. <Fabio NedMagdalena T - 01/10/19 10:49> Results - Labs Result diagrams: 01/10/19 07:29 01/10/19 07:29 <Gabby Mclaughlin - 01/12/19 09:13> Abnormal lab results 01/09/19 01/09/19 01/10/19 Range/Units 12:54 12:54 07:29 WBC 18.5 H 15.7 H (4.0-11.0) th/mm3 Neut % (Auto) 95.7 H (16.0-70.0) % Lymph % (Auto) 3.1 L (9.0-44.0) % Neut # (Auto) 17.7 H (1.8-7.7) th/mm3 Lymph # (Auto) 0.6 L (1.0-4.8) th/mm3 Chloride 108 H (98-107) meq/L BUN 20 H (7-18) mg/dL Estimated GFR 56 L (>89) mL/min Random Glucose 206 H (74-106) mg/dL 01/10/19 Range/Units 07:29 WBC (4.0-11.0) th/mm3 Neut % (Auto) (16.0-70.0) % Lymph % (Auto) (9.0-44.0) % Neut # (Auto) (1.8-7.7) th/mm3 Lymph # (Auto) (1.0-4.8) th/mm3 Chloride 108 H (98-107) meq/L BUN (7-18) mg/dL Estimated GFR 61 L (>89) mL/min Random Glucose (74-106) mg/dL Short CBC 01/09/19 01/10/19 Range/Units 12:54 07:29 WBC 18.5 H 15.7 H (4.0-11.0) th/mm3 Hgb 13.7 13.3 (11.6-15.3) gm/dL Hct 40.1 39.8 (35.0-46.0) % Plt Count 287 282 (150-450) th/mm3 BMP 01/09/19 01/10/19 12:54 07:29 Sodium 141 140 Potassium 4.1 4.2 Chloride 108 H 108 H Carbon Dioxide 22.5 25.5 BUN 20 H 18 Creatinine 1.00 0.94 Calcium 8.8 8.5 <Magdalena Raman T - 01/10/19 08:28> Physical Exam Vital signs: Vital Signs 01/11/19 11:36 01/11/19 11:40 Pulse Rate 81 84 Respiratory Rate 17 18 Blood Pressure 115/64 Pulse Oximetry 94 L Intake & Output 01/11/19 01/12/19 01/12/19 18:59 06:59 18:59 Other: Date of Last Bowel Movement 01/11/19 <Gabby Mclaughlin M - 01/12/19 09:13> Vital Signs 01/09/19 11:21 01/09/19 15:06 01/09/19 16:40 Temperature 97.9 F 98.2 F Pulse Rate 86 89 Respiratory Rate 20 18 Blood Pressure 123/72 150/92 H Pulse Oximetry 96 96 01/09/19 20:00 01/09/19 20:05 01/09/19 23:39 Temperature 98.3 F Pulse Rate 88 82 77 Respiratory Rate 18 18 18 Blood Pressure 135/65 Pulse Oximetry 94 L 96 01/10/19 00:00 01/10/19 03:30 01/10/19 06:59 Temperature 98.2 F Pulse Rate 82 85 82 Respiratory Rate 16 18 18 Blood Pressure 127/69 140/85 Pulse Oximetry 95 96 01/10/19 07:53 Temperature Pulse Rate 81 Respiratory Rate 16 Blood Pressure Pulse Oximetry Intake & Output 01/09/19 01/10/19 01/10/19 18:59 06:59 18:59 Intake Total 200 / 200 200 / 200 Balance 200 / 200 200 / 200 Intake: IV 200 / 200 200 / 200 Zosyn 4.5 GM Premix 4.5 gm In 200 / 200 200 / 200 100 ml @ 200 mls/hr IV.SIG Q6H [facility] Rx#:[id number] Other: # Voids 1 3 Date of Last Bowel Movement 01/07/19 <Van Magdalena Marino 01/10/19 08:28> - Constitutional no acute distress <Hildebran Magdalena Marino 01/10/19 08:28> - Routine Respiratory Exam Present: wheezes <Hildebran Magdalena Marino 01/10/19 08:28> Comments: wheezes throughout all lung [place] <Hildebran Magdalena Marino 01/10/19 08:28> - Routine Cardiovascular Exam Present: RRR, S1, S2. Absent: murmur, gallop, rubs <Hildebran Magdalena Marino 08:28> - Routine Abdominal Exam Present: soft, normoactive bowel sounds. Absent: tenderness, distended <Hildebran Magdalena Marino 01/10/19 08:28> - Routine Extremities Exam Absent: cyanosis, clubbing, edema <Hildebran Magdalena Marino 01/10/19 08:28> - Routine Neurological Exam Present: alert, oriented X3, CN II-XII intact <Hildebran Magdalena Marino 01/10/19 08:28> Assessment and Plan - Assessment (1) Hypertension Code(s): I10 - Essential (primary) hypertension Status: Acute (2) COPD with acute exacerbation Code(s): J44.1 - Chronic obstructive pulmonary disease with (acute) exacerbation Status: Acute (3) Sinusitis Code(s): J32.9 - Chronic sinusitis, unspecified Status: Acute <Gabby Mclaughlin - 01/12/19 09:13> (1) Hypertension Code(s): I10 - Essential (primary) hypertension Status: Acute (2) COPD with acute exacerbation Code(s): J44.1 - Chronic obstructive pulmonary disease with (acute) exacerbation Status: Acute <Hildebran Magdalena Marino 01/10/19 10:46> - Assessment and Plan 63-year-old female with COPD and hypertension presented to the ED with shortness of breath, admitted for COPD exacerbation with failed outpatient therapy with Levaquin. COPD exacerbation -O2 sat 96% on room air -No leukocytosis on CBC -Influenza negative, Legionella and pneumococcal pending -Chest x-ray negative -Sputum culture ordered -Blood cultures NGTD -S/p 3 treatments of DuoNebs, 125 mg of IV Solu-Medrol, 1 dose of Rocephin and azithromycin -Patient failed outpatient therapy with Levaquin. -continue Zosyn 4.5 gm IV q6h (01/07-) -Discontinued Solu-Medrol 60 mg IV every 6 hours (01/07-01/09), continue PO prednisone 50mg daily (01/09-) -Duo nebs and albuterol -Oxygen as needed to keep sats above 92% -Consult to COPD educator -Recommended quitting smoking. Hypertension -continue home losartan New onset Headache -most likely related to sinus pressure -Will order head CT and ESR to rule out other significant causes -Fiorcet PRN -Flonase not available, continue cromolyn nasal spray -continue zyrtec daily Otitis externa -Right ear -Cipro drops TID GI ppx: protonix DVT prophylaxis: SCDs Discharge planning: patient to follow up with [facility] <Magdalena Raman - 01/10/19 10:49> - Attending Attestation The exam, history, and the medical decision-making described in the above note were completed with the assistance of the resident physician. I reviewed and agree with the findings presented. I attest that I had a [id number]-eeiv encounter with the patient on the same day, and personally performed and documented my assessment and findings in the medical record. much better with her COPD <Gabby Mclaughlin - 01/12/19 09:13> <Magdalena Raman - Last Filed: 01/10/19 10:46> (1) Hypertension Qualifiers: Hypertension type: essential hypertension Qualified Code(s): I10 - Essential (primary) hypertension <Gabby Mclaughlin - Last Filed: 01/12/19 09:13> (1) Hypertension Qualifiers: Hypertension type: essential hypertension Qualified Code(s): I10 - Essential (primary) hypertension <Magdalena Raman T - Last Filed: 01/10/19 10:46> (1) Hypertension Qualifiers: Hypertension type: essential hypertension Qualified Code(s): I10 - Essential (primary) hypertension <Gabby Mclaughlin M - Last Filed: 01/12/19 09:13> (1) Hypertension Qualifiers: Hypertension type: essential hypertension Qualified Code(s): I10 - Essential (primary) hypertension
--- NOTE | 2019-01-10 16:11 | CT ---
EXAM DATE: 01/10/2019 4:06 PM EST AGE/SEX: 63 years / Female INDICATIONS: Headache for four days. CLINICAL DATA: This is the patient's initial encounter. Patient reports that signs and symptoms have been present for 4 - 6 days and indicates a pain score of 10/10. MEDICAL/SURGICAL HISTORY: Chronic obstructive pulmonary disease. Hypertension. Carcinoma, uterine . None. RADIATION DOSE: 34.27 CTDI (mGy) COMPARISON: No prior exams available for comparison. TECHNIQUE: CT of the head without contrast. Using automated exposure control and adjustment of the mA and/or kV according to patient size, radiation dose was kept as low as reasonably achievable to ob tain optimal diagnostic quality images. DICOM format image data is available electronically for revi ew and comparison. FINDINGS: Cerebrum: The ventricles are normal for age. No evidence of midline shift, mass lesion, hemorrhage or acute infarction. No extraaxial fluid collections are seen. Posterior Fossa: The cerebellum and brainstem are intact. The 4th ventricle is midline. The cerebe llopontine angle is unremarkable. Extracranial: The visualized portion of the orbits is intact. Skull: The calvaria is intact. No evidence of skull fracture. Fluid level in both maxillary sinuses CONCLUSION: 1. Air fluid level of both maxillary sinuses otherwise unremarkable noncontrast head CT . . Electronically signed by: Noel Baron MD Board Certified Radiologist 01/10/2019 4:10 PM EST
[2019-01-11] MEDS: Butalbital/APAP/Caff 50/325/40 MG Tablet PO PRN ×3 (03:38→12:10)
[2019-01-11] MEDS: Piperacil/Tazo 4.5 GM Premix 4.5 GM/100 ML BAG IV.SIG SCH (03:38)
[2019-01-11 04:40] VITALS: TEMP 97.8
--- NOTE | 2019-01-11 08:05 | P.PNFP ---
Subjective Interval history: No acute events overnight. Patient still complaining of JENNINGS. Discussed with patient that CT head demonstrated acute sinusitis, otherwise, negative. Will be switching patient's abx to augmentin today. Patient is comfortable going home this afternoon. States that she is breathing well. Denies CP, SOB, N/V, and abdominal pain. [facility] be [facility] with [facility] Results - Labs Result diagrams: 01/10/19 07:29 01/10/19 07:29 Abnormal lab results 01/10/19 01/10/19 Range/Units 07:29 07:29 WBC 15.7 H (4.0-11.0) th/mm3 Chloride 108 H (98-107) meq/L Estimated GFR 61 L (>89) mL/min Short CBC 01/10/19 Range/Units 07:29 WBC 15.7 H (4.0-11.0) th/mm3 Hgb 13.3 (11.6-15.3) gm/dL Hct 39.8 (35.0-46.0) % Plt Count 282 (150-450) th/mm3 BMP 01/10/19 07:29 Sodium 140 Potassium 4.2 Chloride 108 H Carbon Dioxide 25.5 BUN 18 Creatinine 0.94 Calcium 8.5 - Imaging Impressions Head CT 01/10/19 00:00 CONCLUSION: 1. Air fluid level of both maxillary sinuses otherwise unremarkable noncontrast head CT . . Physical Exam Vital signs: Vital Signs 01/10/19 09:49 01/10/19 11:10 01/10/19 12:01 Temperature 98.3 F Pulse Rate 84 78 Respiratory Rate 18 16 18 Blood Pressure 114/70 Pulse Oximetry 96 01/10/19 15:35 01/10/19 19:22 01/10/19 20:00 Temperature 98.3 F 97.5 F L Pulse Rate 88 65 79 Respiratory Rate 18 18 18 Blood Pressure 118/67 120/64 Pulse Oximetry 95 97 94 L 01/10/19 23:15 01/10/19 23:39 01/11/19 03:23 Temperature 97.5 F L Pulse Rate 65 75 69 Respiratory Rate 18 16 18 Blood Pressure 135/83 Pulse Oximetry 95 01/11/19 04:00 01/11/19 07:26 01/11/19 07:54 Temperature 97.8 F 97.8 F Pulse Rate 79 81 78 Respiratory Rate 18 17 18 Blood Pressure 135/83 169/85 H Pulse Oximetry 94 L 95 95 Intake & Output 01/10/19 01/11/19 01/11/19 18:59 06:59 18:59 Intake Total 200 / 200 200 / 200 Balance 200 / 200 200 / 200 Intake: IV 200 / 200 200 / 200 Zosyn 4.5 GM Premix 4.5 gm In 200 / 200 200 / 200 100 ml @ 200 mls/hr IV.SIG Q6H [facility] Rx#:[id number] Other: # Voids 3 Date of Last Bowel Movement 01/07/19 01/10/19 # Bowel Movements 1 - Constitutional no acute distress - Detailed ENT Exam Nose: Present: sinus tenderness - Routine Respiratory Exam Present: decreased breath sounds. Absent: wheezes, crackles - Routine Cardiovascular Exam Present: RRR, S1, S2. Absent: murmur, gallop, rubs - Routine Abdominal Exam Present: soft, normoactive bowel sounds. Absent: tenderness, distended Assessment and Plan - Assessment (1) Hypertension Code(s): I10 - Essential (primary) hypertension Status: Acute (2) COPD with acute exacerbation Code(s): J44.1 - Chronic obstructive pulmonary disease with (acute) exacerbation Status: Acute (3) Sinusitis Code(s): J32.9 - Chronic sinusitis, unspecified Status: Acute - Assessment and Plan 63-year-old female with COPD and hypertension presented to the ED with shortness of breath, admitted for COPD exacerbation with failed outpatient therapy with Levaquin. Acute Sinusitis/ JENNINGS -Head CT on 01/10 demonstrates air-fluid level of both maxillary sinuses otherwise unremarkable -Will discharge patient home on augmentin -Fiorcet PRN -Flonase -continue zyrtec daily COPD exacerbation -O2 sat 96% on room air -No leukocytosis on CBC -Influenza negative, Legionella and pneumococcal pending -Chest x-ray negative -Sputum culture ordered -Blood cultures NGTD -S/p 3 treatments of DuoNebs, 125 mg of IV Solu-Medrol, 1 dose of Rocephin and azithromycin -Patient failed outpatient therapy with Levaquin. -Discontinue Zosyn 4.5 gm IV q6h (01/07-01/11) -Discontinued Solu-Medrol 60 mg IV every 6 hours (01/07-01/09), continue PO prednisone 50mg daily (started on 01/09), will discharge with 5 more days of Prednisone -Duo nebs and albuterol, patient will be discharge with Atrovent and Proair -Oxygen as needed to keep sats above 92% -Consult to COPD educator -Recommended quitting smoking. Hypertension -continue home losartan Otitis externa -Right ear -Cipro drops TID GI ppx: protonix DVT prophylaxis: SCDs Discharge planning: patient to follow up with [facility] (1) Hypertension Qualifiers: Hypertension type: essential hypertension Qualified Code(s): I10 - Essential (primary) hypertension
[2019-01-11] MEDS: Ciprofloxacin 0.3% Opth Drops 2.5 ML Bottle RIGHT EAR SCH (08:17)
[2019-01-11] MEDS: Senna/Docusate Sodium 8.6/50 MG Tablet PO SCH (08:18)
[2019-01-11] MEDS ORDERED: Amoxicillin/Clavulanate 875/125 MG Tablet PO SCH (09:00)
[2019-01-11 11:41] VITALS: BP 115/64; PULSE 84; RESP 18; O2SAT 94
--- NOTE | 2019-01-11 16:00 | P.DS ---
Date of admission: 01/09/19 11:22 Primary care physician: No Primary Care Physician Brief History from admission: Ms Stevens is a 63-year-old female with a history of COPD and hypertension who presented to the ED for shortness of breath. Patient states that she is visiting here for [place] during the winter months. No primary care physician here. States that about a week ago she started having congestion and productive coughing of green phlegm. States that she went to urgent care on the 01/01 and was prescribed Levaquin, prednisone, tessalon pearls, and albuterol inhaler as needed. States that she finished her total course of antibiotics and has only mildly improved. Reports that she called the urgent care doctor to request more antibiotics, but he told her that she needs to be seen or go to the ED. Reports that she has progressively gotten worse with congestion and headache. Still coughing up green mucus and reports that her head and chest feels full. Patient states that she is nauseated, but no episodes of vomiting. Also endorses subjective fevers. Complains of right ear pain. Denies diarrhea, abdominal pain, and sick contacts. Denies being hospitalized within the past 3 months. Denies ever being hospitalized for COPD exacerbations. States that she has been hospitalized within the past year for bronchopneumonia in [place]. She did not receive a flu shot this year. She is a current smoker and has decreased smoking to 6 cigarettes a week. DS: Diagnosis - Discharge Diagnosis (1) Hypertension Status: Acute (2) COPD with acute exacerbation Status: Acute (3) Sinusitis Status: Acute DS: Medications - Discharge Medications Prescriptions: albuterol sulfate [ProAir HFA] 2 puff INHALATION Q4-6H PRN #100 puff PRN Reason: SOB amoxicillin-pot clavulanate 1 tab PO Q12HR #13 tab llczqsczkq-thgrkdwjwloan-erhu 1 tab PO Q4H PRN #30 tab PRN Reason: headache cetirizine 10 mg PO DAILY #60 tab fluticasone 2 spray NASAL DAILY #100 sprays ipratropium bromide [Atrovent HFA] 2 puff INHALATION QID #100 puff losartan 100 mg PO DAILY #90 tab pantoprazole 40 mg PO DAILY #5 tab prednisone 50 mg PO DAILY #5 tab DS: Summary - Time Spent with Patient Total time spent providing and/or coordinating discharge services: - Quality: VTE Deep Vein Thrombosis/Pulmonary Embolism Present on Admission: No Exam Vital signs: Vital Signs 01/10/19 19:22 01/10/19 20:00 01/10/19 23:15 Temperature 97.5 F L Pulse Rate 65 79 65 Respiratory Rate 18 18 18 Blood Pressure 120/64 Pulse Oximetry 97 94 L 01/10/19 23:39 01/11/19 03:23 01/11/19 04:00 Temperature 97.5 F L 97.8 F Pulse Rate 75 69 79 Respiratory Rate 16 18 18 Blood Pressure 135/83 135/83 Pulse Oximetry 95 94 L 01/11/19 07:26 01/11/19 07:54 01/11/19 11:36 Temperature 97.8 F Pulse Rate 81 78 81 Respiratory Rate 17 18 17 Blood Pressure 169/85 H Pulse Oximetry 95 95 01/11/19 11:40 Temperature Pulse Rate 84 Respiratory Rate 18 Blood Pressure 115/64 Pulse Oximetry 94 L Intake & Output 01/10/19 01/11/19 01/11/19 18:59 06:59 18:59 Intake Total 200 / 200 200 / 200 Balance 200 / 200 200 / 200 Intake: IV 200 / 200 200 / 200 Zosyn 4.5 GM Premix 4.5 gm In 200 / 200 200 / 200 100 ml @ 200 mls/hr IV.SIG Q6H [facility] Rx#:[id number] Other: # Voids 3 Date of Last Bowel Movement 01/07/19 01/10/19 01/11/19 # Bowel Movements 1 Results Labs on day of discharge: Preliminary micro results at discharge 01/10/19 13:40 Sputum Culture - Preliminary Sputum - Expectorated Sputum Immature growth - reincubate 01/07/19 18:05 Aerobic Blood Culture - Preliminary Blood - Peripheral No growth in 4 days Anaerobic Blood Culture - Preliminary No growth in 4 days 01/07/19 18:10 Aerobic Blood Culture - Preliminary Blood - Peripheral No growth in 4 days Anaerobic Blood Culture - Preliminary No growth in 4 days - Impressions ITS Impressions Chest X-Ray 01/07/19 17:58 CONCLUSION: The lungs are clear. Head CT 01/10/19 00:00 CONCLUSION: 1. Air fluid level of both maxillary sinuses otherwise unremarkable noncontrast head CT . . Discharge Plan - Discharge Disposition Patient Disposition: 01 Discharge Home - Discharge Condition Condition: Stable - Discharge Order Discharge Orders: Discharge Order (Routine); Ordered 01/11/19 Ordered By: Magdalena Raman - Physicians Team Primary Care Provider: Primary Care Leydi Pantoja Attending Provider: Gabby Mclaughlin
== END 2019-01-11 12:47 | disposition home or self-care (01) | DRG 192 ==
LOC: NEDA 16:53 → NEPB 16:53 → NEPFCDU 21:14
PROVIDERS: ADMIT Family Medicine; ATTEND Family Medicine
CPT/HCPCS: 36600; 70450; 71010; 71045; 80048; 80053; 82550; 82805; 83520; 83605; 83735; 83880; 84484; 85025; 85027; 85610; 85651; 85652; 87040; 87070; 87205; 87275; 87276; 87804; 90765; 90775; 93005; 94640; 94664; 94665; 96365; 96366; 96375; 96376; 99285; G0378; J0456; J0696; J2543; J2930; J7050; J7506; J7512